=== PATIENT | female | born 1955 | race Caucasian/White ===

== ENCOUNTER → 2021-03-29 | Outpatient (CLI) | payer MEDICARE, OTHER | LOC: M.RAD 11:00 | PROVIDERS: ATTEND Family Medicine | DX: Z12.31 Encounter for screening mammogram for malignant neoplasm of breast (principal) ==

== ENCOUNTER 2021-04-15 12:22 | Emergency (ER) | payer MEDICARE, OTHER ==
[~2021-04-15] VITALS: Ht 160 cm; Wt 65.8 kg
[2021-04-15] MEDS ORDERED: ALEVE220 M1 PO (12:34)
[2021-04-15] MEDS ORDERED: MEDROLDOSEPACK PO (13:03)
[2021-04-15] MEDS ORDERED: NAPROSYN500 MG PO (13:03)
[2021-04-15] MEDS ORDERED: FLEXERIL PO (13:03)
[2021-04-15] MEDS ORDERED: HYDROCODON-ACE1 EAC7 PO (13:21)
[2021-04-15 14:25] VITALS: BP 121/70
== END 2021-04-15 14:26 | disposition home or self-care (01) ==
LOC: M.ERS 12:22
DX: M54.42 Lumbago with sciatica, left side (principal); M54.41 Lumbago with sciatica, right side; Z79.899 Other long term (current) drug therapy; Z88.8 Allergy status to other drugs, medicaments and biological substances

== ENCOUNTER → 2021-05-08 | Outpatient (CLI) | payer MEDICARE, OTHER ==
[~2021-05-08] MED LIST: ALEVE220 M1 PO; FLEXERIL PO; HYDROCODON-ACE1 EAC7 PO; MEDROLDOSEPACK PO; NAPROSYN500 MG PO
== END ==
LOC: M.RAD 10:00
PROVIDERS: ATTEND Family Medicine
DX: M47.816 Spondylosis without myelopathy or radiculopathy, lumbar region (principal); M47.817 Spondylosis without myelopathy or radiculopathy, lumbosacral region; M48.061 Spinal stenosis, lumbar region without neurogenic claudication; M48.07 Spinal stenosis, lumbosacral region; M85.80 Other specified disorders of bone density and structure, unspecified site; M81.0 Age-related osteoporosis without current pathological fracture